=== PATIENT | male | born 1960 | race Caucasian/White ===

== ENCOUNTER 2018-05-29 16:49 | Emergency (ER) | payer OTHER ==
[2018-05-29] MEDS: ACETAMINOPHEN 500 MG TAB PO (17:53)
[2018-05-29] MEDS: IBUPROFEN 600 MG TAB PO (17:53)
[2018-05-29] MEDS: DEXAMETHASONE (1 MG/ML PO SYG) PO (18:03)
[2018-05-29] MEDS: LIDOCAINE 1% (MDV) 10 ML INJ INFIL (18:03)
[2018-05-29] MEDS: CEFTRIAXONE 1 GM INJ IM (18:03)
[2018-05-29] MEDS: LIDOCAINE 1% (MPF) 10 ML INJ INFIL (18:03)
== END 2018-05-29 18:15 | disposition home or self-care (01) ==
LOC: FTE 16:49
DX: J03.90 Acute tonsillitis, unspecified (principal)
CPT/HCPCS: 96372; 99284-25

== ENCOUNTER 2019-03-29 20:01 | Emergency (ER) | payer SELFPAY, OTHER | END 2019-03-29 20:35 | disposition left against medical advice (07) | LOC: E/R 20:01 | DX: Z53.21 Procedure and treatment not carried out due to patient leaving prior to being seen by health care provider (principal) ==

== ENCOUNTER 2019-04-19 09:43 | Emergency (ER) | payer SELFPAY ==
[2019-04-19] MEDS: AZITHROMYCIN 500 MG TAB PO (10:53)
[2019-04-19] MEDS: LIDOCAINE 1% (MDV) 20 ML INJ SC (10:53)
[2019-04-19] MEDS: CEFTRIAXONE 250 MG INJ IM (10:53)
== END 2019-04-19 11:13 | disposition home or self-care (01) ==
LOC: FTE 09:43
DX: M65.312 Trigger thumb, left thumb (principal); R30.0 Dysuria; Z11.3 Encounter for screening for infections with a predominantly sexual mode of transmission
CPT/HCPCS: 87591; 96372; 99284-25